=== PATIENT | male | born 1935 | race Caucasian/White ===

== ENCOUNTER 2019-07-21 20:19 | Emergency (ER) | payer MEDICARE ==
--- NOTE | 2019-07-21 21:42 | EDM.PDOC ---
ED HPI GENERAL MEDICAL PROBLEM - General Chief Complaint: Neurological Problem Stated Complaint: Possible stroke Time Seen by Provider: 07/21/19 20:55 Source of Information: Reports: Patient, EMS, EMS Notes Reviewed, Other ( neighbor /friend) History Limitations: Reports: Altered Mental Status - History of Present Illness INITIAL COMMENTS - FREE TEXT/NARRATIVE: Patient is an 84 yo white male with history of stage III CKD, HTN, Diabetes Mellites, Elevated Hemoglobin evaluated in [place] with unknown results in September of this year, with low oxygen in blood according to patients . This am patient called the hospital and spoke with a family member who noted garbled speech but attributed to poor dental receptionist. Netta patient was contacted by his who is visiting family in [facility] and due to his inability to communicate she contacted a neighbor to check on him who found him at home but although able to walk he was unable to express his thoughts and had difficulty forming intended words Brought to ED by ambulance for evaluation of possible stroke Allergies NKDA Onset: Today Onset Date: 07/21/19 Duration: Hour(s): (12 hours) - Related Data Allergies Allergy/AdvReac Type Severity Reaction Status Date / Time No Known Allergies Allergy Verified 07/21/19 21:44 Home Meds: Home Meds Furosemide 10 mg PO DAILY 07/21/19 [History] Losartan [Cozaar] 50 mg PO DAILY 07/21/19 [History] Metoprolol Tartrate 25 mg PO DAILY 07/21/19 [History] Repaglinide [Prandin] 2 mg PO DAILY 07/21/19 [History] Simvastatin 40 mg PO BEDTIME 07/21/19 [History] amLODIPine [Norvasc] 10 mg PO DAILY 07/21/19 [History] glipiZIDE [Glipizide ER] 10 mg PO DAILY 07/21/19 [History] Past Medical History Cardiovascular History: Reports: Hypertension Respiratory History: Reports: Other (See Below) (History of evaluation for "low oxygen in blood/elevated HCT. H/H 19. in August) Endocrine/Metabolic History: Reports: Diabetes, Type II Hematologic History: Reports: Polycythemia (Evaluation in [place] in Aug/September of this year. states he went to be checked for low oxygen. Appears to have been lost to follow up) Social & Family History - Tobacco Use Smoking Status *Q: Former Smoker Tobacco Use Within Last Twelve Months: No - Alcohol Use Days Per Week of Alcohol Use: 0 - Living Situation & Occupation Living situation: Reports: Occupation: Retired ED ROS GENERAL - Review of Systems Constitutional: Reports: No Symptoms Respiratory: Reports: Other (Occassional loose cough . Patient denies SOB. History of "low oxygen" and high hct with evaluation in [place] in Sep 2018) Cardiovascular: Reports: No Symptoms. Denies: Chest Pain GI/Abdominal: Denies: Abdominal Pain, Nausea, Vomiting : Reports: No Symptoms Musculoskeletal: Reports: Other Neurological: Denies: Headache, Numbness, Pre-Existing Deficit ED EXAM, NEURO - Physical Exam Exam: See Below Exam Limited By: Other (Aphasia) General Appearance: Alert, No Apparent Distress, Other (No apparrent SOB depite O2 Sat of 77 on room air) Eye Exam: Right Eye: EOMI, PERRL, Left Eye: Normal Inspection Ears: Normal External Exam, Hearing Grossly Normal Nose: Normal Inspection, No Blood Throat/Mouth: Normal Inspection, Normal Lips, No Airway Compromise Head Exam: Atraumatic, Normocephalic. No: Facial Swelling, Facial Tenderness Neck: Normal Inspection, Supple, Non-Tender Respiratory/Chest: No Respiratory Distress, Lungs Clear, Normal Breath Sounds, No Accessory Muscle Use, Chest Non-Tender Cardiovascular: Regular Rate, Rhythm, No Edema, No JVD GI/Abdominal: Soft, Non-Tender, No Distention, No Mass, Pelvis Stable Neurological: Alert, CN II-XII Intact, Straight Leg Raise (L), Straight Leg Raise (R), Other (NO leg or arm drife. Patietn with expressive aphasia. Difficutly with F to N testing and JESUS due to apparent lack of coordination or inabilty to follow directions although able to follow multiple other instructions) Back Exam: Normal Inspection. No: CVA Tenderness (R) Extremities: Normal Inspection, Normal Range of Motion, Non-Tender Psychiatric: Normal Affect, Normal Mood Skin Exam: Warm, Dry, Intact, Normal Color, No Rash EKG INTERPRETATION Rhythm: Other (Sinus rhythm with PAC's) Rate (Beats/Min): 99 P-Wave: Present QRS: Normal QT: Prolonged Comparison: NA - No Prior EKG Course - Vital Signs Last Recorded V/S: Last Vital Signs Temp 98.4 F 07/21/19 21:00 Pulse 89 07/21/19 22:15 Resp 16 07/21/19 22:15 BP 125/62 07/21/19 22:15 Pulse Ox 92 L 07/21/19 22:15 - Orders/Labs/Meds Orders: Active Orders 24 hr Category Date Time Status EKG Documentation Completion [RC] ASDIRECTED Care 07/22/19 00:52 Active Ready for Discharge [RC] PER UNIT ROUTINE Care 07/22/19 00:39 Active Chest 1V Frontal [CR] Stat Exams 07/21/19 21:34 Taken Head wo Cont [CT] Stat Exams 07/21/19 20:57 Taken EKG 12 Lead [EK] Routine Ther 07/22/19 00:52 Ordered Labs: Laboratory Tests 07/21/19 07/21/19 07/21/19 Range/Units 21:00 21:00 21:00 WBC 9.6 (4.0-11.0) K/uL RBC 7.11 H (4.50-6.50) M/uL Hgb 20.5 H* (13.0-18.0) g/dL Hct 60.1 H* (40.0-54.0) % MCV 85 (76-96) fL MCH 28.8 (27.0-32.0) pg MCHC 34.1 (31.0-35.0) g/dL RDW 14.5 (11.0-16.0) % Plt Count 157 (150-400) K/uL MPV 11.5 H (6.0-10.0) fL Neut % (Auto) 80.4 H (45.0-70.0) % Lymph % (Auto) 14.7 L (20.0-40.0) % Amite % (Auto) 4.3 (3.0-10.0) % Eos % (Auto) 0.3 L (1.0-5.0) % Baso % (Auto) 0.3 (0.0-0.5) % Neut # (Auto) 7.74 H (2.00-7.50) K/uL Lymph # (Auto) 1.42 L (1.50-4.00) K/uL Amite # (Auto) 0.41 (0.20-0.80) K/uL Eos # (Auto) 0.03 L (0.04-0.40) K/uL Baso # (Auto) 0.03 (0.02-0.10) K/uL PT (9.0-11.5) sec INR (1.0-3.5) APTT (24.4-33.2) SECONDS Sodium 136 (136-145) mmol/L Potassium 5.0 (3.5-5.1) mmol/L Chloride 100 (98-107) mmol/L Carbon Dioxide 20.8 L D (21.0-32.0) mmol/L Anion Gap 20.2 H (5.0-15.0) mmol/L BUN 24 (8-26) mg/dL Creatinine 1.65 H (0.70-1.30) mg/dL Est Cr Clr Drug Dosing TNP Estimated GFR (MDRD) 40 L (>60) MLS/MIN BUN/Creatinine Ratio 14.5 (6-25) Glucose 367 H D (74-100) mg/dL Lactic Acid 3.05 H (0.90-1.70) mmol/L Calcium 9.5 (8.5-10.1) mg/dL Total Bilirubin 0.9 (0.0-1.0) mg/dL AST 22 (15-37) U/L ALT 60 (12-78) U/L Alkaline Phosphatase 92 (46-116) U/L Troponin I 0.034 (0.000-0.060) ng/mL Total Protein 8.1 (6.4-8.2) g/dL Albumin 3.6 (3.4-5.0) g/dL Globulin 4.5 H (2.2-4.2) g/dL Albumin/Globulin Ratio 0.8 (0.8-2.0) Pre Ther Phlebot Hct % Therapeutic Phlebotomy Therapeut Phleb Volume mL Post Ther Phlebot Hct 07/21/19 07/21/19 Range/Units 21:00 22:00 WBC (4.0-11.0) K/uL RBC (4.50-6.50) M/uL Hgb (13.0-18.0) g/dL Hct (40.0-54.0) % MCV (76-96) fL MCH (27.0-32.0) pg MCHC (31.0-35.0) g/dL RDW (11.0-16.0) % Plt Count (150-400) K/uL MPV (6.0-10.0) fL Neut % (Auto) (45.0-70.0) % Lymph % (Auto) (20.0-40.0) % Amite % (Auto) (3.0-10.0) % Eos % (Auto) (1.0-5.0) % Baso % (Auto) (0.0-0.5) % Neut # (Auto) (2.00-7.50) K/uL Lymph # (Auto) (1.50-4.00) K/uL Amite # (Auto) (0.20-0.80) K/uL Eos # (Auto) (0.04-0.40) K/uL Baso # (Auto) (0.02-0.10) K/uL PT 11.3 (9.0-11.5) sec INR 1.2 (1.0-3.5) APTT 23.8 L (24.4-33.2) SECONDS Sodium (136-145) mmol/L Potassium (3.5-5.1) mmol/L Chloride (98-107) mmol/L Carbon Dioxide (21.0-32.0) mmol/L Anion Gap (5.0-15.0) mmol/L BUN (8-26) mg/dL Creatinine (0.70-1.30) mg/dL Est Cr Clr Drug Dosing Estimated GFR (MDRD) (>60) MLS/MIN BUN/Creatinine Ratio (6-25) Glucose (74-100) mg/dL Lactic Acid (0.90-1.70) mmol/L Calcium (8.5-10.1) mg/dL Total Bilirubin (0.0-1.0) mg/dL AST (15-37) U/L ALT (12-78) U/L Alkaline Phosphatase (46-116) U/L Troponin I (0.000-0.060) ng/mL Total Protein (6.4-8.2) g/dL Albumin (3.4-5.0) g/dL Globulin (2.2-4.2) g/dL Albumin/Globulin Ratio (0.8-2.0) Pre Ther Phlebot Hct 20.5 % Therapeutic Phlebotomy Tschcar Therapeut Phleb Volume 400 mL Post Ther Phlebot Hct Not Reportable Meds: Medications Discontinued Medications Generic Name Dose Route Start Last Admin Trade Name Carlos PRN Reason Stop Dose Admin Sodium Chloride 1,000 mls @ 999 mls/hr 07/21/19 21:43 07/21/19 21:54 Normal Saline IV 07/21/19 22:43 999 mls/hr .BOLUS ONE Administration - Radiology Interpretation Free Text/Narrative:: CT head negative for acute intracrainial process CT Results Date: 07/21/19 CT Results Time: 22:30 - Re-Assessments/Exams Free Text/Narrative Re-Assessment/Exam: 07/21/19 23:30 Prior to transfer patient exam was unchanged. Patient appearred to be more clear with mentation after fluids and phlebotomy. 07/21/19 23:32 Patient was placed on O2 requiring 3 liters NC to maintain O2 sat in lower 90's As per discussion with Dr. Agee neurologist at [place] patient had 1 unit of blood removed 1 liter of fluids given initially followed by 250 ml/hour for second liter during trnsfer CT scan see report. No acute intracrainial process by radiologist ruling CXR -no acute process cystic process right humeral head Labs with elevated Anion gap 20 , Trop .034, lactic acid 3 Abnormal labs-discussed with Dr. Srinivasan who agreed to accept patient in transfer 07/21/19 23:34 07/21/19 23:40 Departure - Departure Disposition: DC/Tfer to [facility] 02 - Discharge Information Referrals: PCP,None [Primary Care Provider] - Forms: ED Department Discharge Sepsis Event Note - Focused Exam Date Exam was Performed: 07/22/19 Time Exam was Performed: 12:51 ED Communication - ED Communication Date/Time Date: 07/21/19 - Discussed Case With (2) Discussed Case With (2): Admitting Provider, Other (and neurologist Dr. Agee and Dr. Srinivasan Hospitalist) - Problem List & Annotations (1) Aphasia SNOMED Code(s): 72305397 Code(s): R47.01 - APHASIA Status: Acute Priority: High (2) Hypoxemia SNOMED Code(s): 384392445 Code(s): R09.02 - HYPOXEMIA Status: Acute Priority: High (3) Polycythemia SNOMED Code(s): 673508064 Status: Acute - Problem List Review Problem List Initiated/Reviewed/Updated: Yes - My Orders Last 24 Hours: My Active Orders 07/21/19 20:57 Head wo Cont [CT] Stat 07/21/19 21:34 Chest 1V Frontal [CR] Stat 07/22/19 00:39 Ready for Discharge [RC] PER UNIT ROUTINE 07/22/19 00:52 EKG Documentation Completion [RC] ASDIRECTED EKG 12 Lead [EK] Routine - Assessment/Plan Last 24 Hours: My Active Orders 07/21/19 20:57 Head wo Cont [CT] Stat 07/21/19 21:34 Chest 1V Frontal [CR] Stat 07/22/19 00:39 Ready for Discharge [RC] PER UNIT ROUTINE 07/22/19 00:52 EKG Documentation Completion [RC] ASDIRECTED EKG 12 Lead [EK] Routine Assessment:: Diagnosis Aphasia Ischemic CVA vs adverse effect of polycythemia vs other Hypoxemia Chronic vs acute Etiology to be determined Records will need to be obtained from [place] hematology consult Polycythemia with increased viscosity of blood 1 unit of blood removed prior to [id number] Chronic Kidney Disease HTN Diabetes Mellites Plan Will transfer via ambulance to [place] for further evaluation and treatment Patient treated with phlebotomy of 1 unit and total of 2 liters of NC in ED and during transfer O2 at 3-4 liters via NC to maintain O2 sats greater than 92 Patient does't appear ill or SOB probably due to chronic nature of hypoxemia/ polycythemia Plan: Patieent to be transported by ambulance to [place] as per discussion with Dr. Agee and Dr. Srinivasan Will have had total of 2 liters of fluid and phleboltomy of 1 unit of blood by the time he reaches [place]
[2019-07-21] MEDS ORDERED: Sodium Chloride 0.9% 1,000 ML IV ONE (21:43)
--- NOTE | 2019-07-22 15:02 | CT ---
CLINICAL DATA: Stroke-like symptoms. UNENHANCED BRAIN CT, 21 JULY 2019: Multislice acquisition through the brain without IV contrast was performed. Comparison is made to a prior exam dated April 25, 2012. There is diffuse cerebral atrophy. There are periventricular lucencies bilaterally, consistent with small vessel ischemic change. No masses or mass effect. No intracranial hemorrhage. No evidence of acute or subacute infarct. There is partial opacification of the mastoid air cells on the left, consistent with mastoid disease. No osseous abnormalities. IMPRESSION: No acute intracranial abnormalities. Job: [id number] [facility]
--- NOTE | 2019-07-22 15:04 | CR ---
CLINICAL DATA: Stroke-like symptoms. AP PORTABLE CHEST, 21 JULY 2019: No priors. The patient has taken a poor inspiration. The heart size is within normal limits. The pulmonary vasculature appears mildly prominent. It may be accentuated by the poor inspiration. Mild pulmonary venous congestion should be considered. There is subtle increased density in the right mid lung just above the minor fissure most likely representing subsegmental atelectasis or infiltrate. The lungs are otherwise clear. No pneumothorax. No pleural effusions. There are multiple subchondral cysts in the right humeral head. No other significant findings. Job: [id number] [facility]TDD
== END 2019-07-21 22:45 ==
LOC: LB.ED 20:19
DX: R47.01 Aphasia (principal); D75.1 Secondary polycythemia; I12.9 Hypertensive chronic kidney disease with stage 1 through stage 4 chronic kidney disease, or unspecified chronic kidney disease; N18.3 Chronic kidney disease, stage 3 (moderate); E11.22 Type 2 diabetes mellitus with diabetic chronic kidney disease; Z87.891 Personal history of nicotine dependence
CPT/HCPCS: 36415; 70450; 71045; 80053; 83605; 84484; 85025; 85610; 85730; 93005; 96360; 99195; 99285; 99285-25; A0425; A0429; J7030

== ENCOUNTER 2020-02-11 14:34 | Emergency (ER) | payer MEDICARE ==
[2020-02-11] MEDS: Furosemide 40 MG/4 ML VIAL IVPUSH ONE (14:44)
--- NOTE | 2020-02-11 15:38 | EDM.PDOC ---
ED HPI GENERAL MEDICAL PROBLEM - General Chief Complaint: General Stated Complaint: SOB Time Seen by Provider: 02/11/20 14:35 Source of Information: Reports: Patient, Family, RN History Limitations: Reports: No Limitations - History of Present Illness INITIAL COMMENTS - FREE TEXT/NARRATIVE: pt presents to the ER with shortness of breath, he states medical history of stroke around 2018 and placement of stents in his heart in [place] about that time. history also provided by . episode started 2-3 days ago and pt has been using his O2 concentrator at home more often and sleeping in the chair at night where he normally sleeps in bed. yesterday he worsened throughout the night and day today. pt denies cough, fever, chills, nausea, vomiting, chest pain, dizzy or lightheadedness. no known exposure to covid 19. symptoms worsen with activity and improve slightly with rest. Onset Date: 02/10/20 - Related Data Allergies Allergy/AdvReac Type Severity Reaction Status Date / Time No Known Allergies Allergy Verified 07/21/19 21:44 Home Meds: Home Meds Losartan [Cozaar] 50 mg PO DAILY 07/21/19 [History] Metoprolol Tartrate 25 mg PO DAILY 07/21/19 [History] Aspirin 81 mg PO DAILY 02/11/20 [History] Insulin Glarg,Human.Rec.Analog [Lantus Solostar] 15 unit SUBCUT DAILY 02/11/20 [History] Insulin Lispro [Humalog] 7 unit SQ TID 02/11/20 [History] Latanoprost [Xalatan] 2.5 ml OP DAILY 02/11/20 [History] Ticagrelor [Brilinta] 90 mg PO BID 02/11/20 [History] atorvaSTATin [Lipitor] 40 mg PO DAILY 02/11/20 [History] Past Medical History HEENT History: Reports: Hard of Hearing, Impaired Vision Cardiovascular History: Reports: Hypertension, Stents Respiratory History: Reports: Other (See Below) (History of evaluation for "low oxygen in blood/elevated HCT. 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 states he went to be checked for low oxygen. Appears to have been lost to follow up) - Past Surgical History Cardiovascular Surgical History: Reports: Carotid Stents Social & Family History - Living Situation & Occupation Living situation: Reports: Occupation: Retired ED ROS GENERAL - Review of Systems Review Of Systems: Comprehensive ROS is negative, except as noted in HPI. ED EXAM, GENERAL - Physical Exam Exam: See Below Exam Limited By: No Limitations General Appearance: Alert, WD/WN, No Apparent Distress, Moderate Distress Eye Exam: Bilateral Eye: EOMI, PERRL Ears: Hearing Loss ([place] bilateral) Throat/Mouth: Normal Lips, Normal Oropharynx, No Airway Compromise Neck: Full Range of Motion Respiratory/Chest: Respiratory Distress, Decreased Breath Sounds, Crackles, Ac cessory Muscle Use, Retractions Cardiovascular: Regular Rate, Rhythm, Tachycardia, Other (pitting edema bilateral +2 lower extremities) Peripheral Pulses: 2+: Radial (L), Radial (R), Posterior Tibial (L), Posterior Tibial (R) GI/Abdominal: Soft, Non-Tender Back Exam: Normal Inspection, Full Range of Motion Extremities: Normal Range of Motion, Non-Tender, Pedal Edema Neurological: Alert, CN II-XII Intact, Normal Gait Psychiatric: Normal Affect, Normal Mood Skin Exam: Cyanosis, Diaphoretic, Pallor (ashen) EKG INTERPRETATION EKG Date: 02/11/20 Rhythm: NSR (sinus tachy) ST-T: Normal Comparison: No Change Course - Vital Signs Last Recorded V/S: Last Vital Signs Temp 96.6 F L 02/11/20 14:36 Pulse 103 H 02/11/20 16:33 Resp 31 H 02/11/20 16:33 BP 140/71 02/11/20 16:33 Pulse Ox 95 02/11/20 16:33 - Orders/Labs/Meds Orders: Active Orders 24 hr Category Date Time Status CPAP Adult [RT BiPAP/CPAP] [RC] ASDIRECTED Care 02/11/20 16:13 Ordered EKG Documentation Completion [RC] ASDIRECTED Care 02/11/20 14:37 Active Chest 1V Frontal [CR] Stat Exams 02/11/20 14:35 Taken Azithromycin [Zithromax] 500 mg Med 02/11/20 15:54 Active Sodium Chloride 0.9% [Normal Saline] 250 ml IV ONETIME cefTRIAXone [Rocephin] Med 02/11/20 15:45 Active 1 gm IVPUSH Q24H Medication Orders Ceftriaxone Sodium (Rocephin) 1 gm IVPUSH Q24H TERRIE Last Admin: 02/11/20 15:47 Dose: 1 gm Documented by: JULIETTE Azithromycin 500 mg/ Sodium (Chloride) 250 mls @ 250 mls/hr IV ONETIME ONE Stop: 02/11/20 16:53 Last Admin: 02/11/20 16:06 Dose: 250 mls/hr Documented by: JULIETTE Labs: Laboratory Tests 02/11/20 02/11/20 Range/Units 14:50 14:50 WBC 17.4 H D (4.0-11.0) K/uL RBC 5.89 (4.50-6.50) M/uL Hgb 17.6 (13.0-18.0) g/dL Hct 52.6 (40.0-54.0) % MCV 89 (76-96) fL MCH 29.9 (27.0-32.0) pg MCHC 33.5 (31.0-35.0) g/dL RDW 15.0 (11.0-16.0) % Plt Count 219 D (150-400) K/uL MPV 11.5 H (6.0-10.0) fL Neut % (Auto) 78.2 H (45.0-70.0) % Lymph % (Auto) 10.9 L (20.0-40.0) % [place] % (Auto) 10.7 H (3.0-10.0) % Eos % (Auto) 0.1 L (1.0-5.0) % Baso % (Auto) 0.1 (0.0-0.5) % Neut # (Auto) 13.60 H (2.00-7.50) K/uL Lymph # (Auto) 1.89 (1.50-4.00) K/uL [place] # (Auto) 1.86 H (0.20-0.80) K/uL Eos # (Auto) 0.02 L (0.04-0.40) K/uL Baso # (Auto) 0.02 (0.02-0.10) K/uL Sodium 134 L (136-145) mmol/L Potassium 4.3 (3.5-5.1) mmol/L Chloride 98 (98-107) mmol/L Carbon Dioxide 24.8 (21.0-32.0) mmol/L Anion Gap 15.5 H (5.0-15.0) mmol/L BUN 46 H D (8-26) mg/dL Creatinine 0.59 L D (0.70-1.30) mg/dL Est Cr Clr Drug Dosing TNP Estimated GFR (MDRD) > 60 (>60) MLS/MIN BUN/Creatinine Ratio 78.0 H (6-25) Glucose 190 H D (74-100) mg/dL Calcium 9.9 (8.5-10.1) mg/dL Total Bilirubin 1.3 H D (0.0-1.0) mg/dL AST 37 (15-37) U/L ALT 62 (12-78) U/L Alkaline Phosphatase 113 (46-116) U/L Troponin I 0.132 H* D (0.000-0.060) ng/mL B-Natriuretic Peptide 4747 H (0-450) pg/mL Total Protein 8.9 H (6.4-8.2) g/dL Albumin 2.7 L (3.4-5.0) g/dL Globulin 6.2 H (2.2-4.2) g/dL Albumin/Globulin Ratio 0.4 L (0.8-2.0) Meds: Medications Generic Name Dose Route Start Last Admin Trade Name Freq PRN Reason Stop Dose Admin Ceftriaxone Sodium 1 gm 02/11/20 15:45 02/11/20 15:47 Rocephin IVPUSH 1 gm Q24H TERRIE Administration Azithromycin 500 mg/ Sodium 250 mls @ 250 mls/hr 02/11/20 15:54 02/11/20 16:06 Chloride IV 02/11/20 16:53 250 mls/hr ONETIME ONE Administration Discontinued Medications Generic Name Dose Route Start Last Admin Trade Name Freq PRN Reason Stop Dose Admin Ceftriaxone Sodium Confirm 02/11/20 15:51 02/11/20 15:46 Rocephin Administered 02/11/20 15:52 Not Given Dose 1 gm .ROUTE .STK-MED ONE Furosemide 40 mg 02/11/20 14:38 02/11/20 14:44 Lasix IVPUSH 02/11/20 14:39 40 mg NOW ONE Administration Methylprednisolone Sodium Succinate 60 mg 02/11/20 15:55 02/11/20 16:12 Solu-Medrol IVPUSH 02/11/20 15:56 60 mg ONETIME ONE Administration Methylprednisolone Sodium Succinate Confirm 02/11/20 16:16 02/11/20 16:13 Solu-Medrol Administered 02/11/20 16:17 Not Given Dose 125 mg .ROUTE .STK-MED ONE Nitroglycerin 1 gm 02/11/20 16:22 02/11/20 16:26 Nitro-Bid 2% TOP 02/11/20 16:23 1 inch ONETIME ONE Administration - Radiology Interpretation Free Text/Narrative:: cxr shows bilat pulm infiltrates worsened when compared to July 13 films suspected consolodation to RLL. cardiomegaly. no noted bony abnormalities. Departure - Departure Time of Disposition: 16:00 Disposition: DC/Tfer to [facility] 02 Clinical Impression: Acute exacerbation of CHF (congestive heart failure), RLL pneumonia, Elevated troponin I level, Respiratory failure with hypoxia and hypercapnia - Discharge Information *PRESCRIPTION DRUG MONITORING PROGRAM REVIEWED*: Not Applicable *COPY OF PRESCRIPTION DRUG MONITORING REPORT IN PATIENT SONI: Not Applicable Referrals: PCP,None [Primary Care Provider] - Forms: ED Department Discharge Critical Care Note - Critical Care Note Total Time (mins): 100 Comments: I spent 100minutes of critical care time with this patient including assessment, chart review, providing interventions and orders, reassessments and monitoring. Sepsis Event Note (ED) - Evaluation Sepsis Screening Result: No Definite Risk - Focused Exam Vital Signs: Vital Signs Temp Pulse Resp BP Pulse Ox 02/11/20 16:33 103 H 31 H 140/71 95 02/11/20 16:28 104 H 29 H 140/71 95 02/11/20 16:10 104 H 32 H 134/55 L 93 L 02/11/20 15:52 106 H 31 H 127/56 L 91 L 02/11/20 15:42 108 H 31 H 128/65 91 L 02/11/20 15:32 107 H 33 H 148/67 H 88 L 02/11/20 15:21 107 H 34 H 133/61 90 L 02/11/20 15:11 108 H 33 H 127/91 H 91 L 02/11/20 15:01 106 H 30 H 133/43 L 92 L 02/11/20 14:58 104 H 32 H 154/50 H 92 L 02/11/20 14:36 96.6 F L 101 H 30 H 147/81 H 94 L 02/11/20 14:35 104 H 30 H 147/84 H 92 L 02/11/20 14:34 98.2 F 116 H 24 H 110/72 80 L ED Communication - Discussed Case With (1) Discussed Case With (1): Admitting Provider Person/s Notified (1): Dr. León of [facility] Person/s Notified (2): Dr. Breaux of [facility] Date: 02/11/20 Time Called: 16:00 - Conversation Summary Admitting Provider Agreed to Patient's Admission: Yes - Problem List & Annotations (1) Hypoxemia SNOMED Code(s): 246233666 Code(s): R09.02 - HYPOXEMIA Status: Acute Priority: High Current Visit: No (2) Acute exacerbation of CHF (congestive heart failure) SNOMED Code(s): 104273304, 05348925382494 Code(s): I50.9 - HEART FAILURE, UNSPECIFIED Status: Acute Current Visit: Yes (3) RLL pneumonia SNOMED Code(s): 660000334 Code(s): J18.9 - PNEUMONIA, UNSPECIFIED ORGANISM Status: Acute Current Visit: Yes (4) Elevated troponin I level SNOMED Code(s): 089825182 Code(s): R79.89 - OTHER SPECIFIED ABNORMAL FINDINGS OF BLOOD CHEMISTRY Status: Acute Current Visit: Yes (5) Respiratory failure with hypoxia and hypercapnia SNOMED Code(s): 68609764 Code(s): J96.91 - RESPIRATORY FAILURE, UNSPECIFIED WITH HYPOXIA; J96.92 - RESPIRATORY FAILURE, UNSPECIFIED WITH HYPERCAPNIA Status: Acute Current Visit: Yes - Problem List Review Problem List Initiated/Reviewed/Updated: Yes - My Orders Last 24 Hours: My Active Orders 02/11/20 14:35 Chest 1V Frontal [CR] Stat 02/11/20 14:37 EKG Documentation Completion [RC] ASDIRECTED 02/11/20 15:45 cefTRIAXone [Rocephin] 1 gm IVPUSH Q24H 02/11/20 15:54 Azithromycin [Zithromax] 500 mg Sodium Chloride 0.9% [Normal Saline] 250 ml IV ONETIME 02/11/20 16:13 CPAP Adult [RT BiPAP/CPAP] [RC] ASDIRECTED - Assessment/Plan Last 24 Hours: My Active Orders 02/11/20 14:35 Chest 1V Frontal [CR] Stat 02/11/20 14:37 EKG Documentation Completion [RC] ASDIRECTED 02/11/20 15:45 cefTRIAXone [Rocephin] 1 gm IVPUSH Q24H 02/11/20 15:54 Azithromycin [Zithromax] 500 mg Sodium Chloride 0.9% [Normal Saline] 250 ml IV ONETIME 02/11/20 16:13 CPAP Adult [RT BiPAP/CPAP] [RC] ASDIRECTED Assessment:: assessment: exacerbation of CHF, acute respiratory failure with hypoxia and hypercapnia, hypoxemia, elevated troponin, RLL pna plan: 500 azithro, 1g rocephin, 60mg solumedrol, cpap of 10, 1" nitro paste, 40mg lasix. transport via fixed wing to [facility], accepting physician Dr. León of [facility]. this pt was evaluated in the context of the covid 19 pandemic. on initial presentation, pt color was dusky singletary from neck up and diaphoretic with significant work of breathing present. after application of supplemental O2 by mask, pt appeared to slightly improve by work of breathing and color. this was further improved by cpap at [id number] and 60% O2. sats improved from 50-60% to 95% BP stable 120s/60-70s HR from 120s to 100. ECG sinus tachycardia with frequent PVCs, no noted T wave or ischemic changes compared to [id number]. CXR shows bilateral infiltrates compared to June with concern for consolodation in RLL that was treated with rocephin and azithromycin. nitro paste was used for any vasodilating action it would provide and lasix. transport via fixed wing by [facility].
[2020-02-11] MEDS: cefTRIAXone 1 GM Vial ONE (15:46)
[2020-02-11] MEDS: cefTRIAXone 1 GM Vial IVPUSH SCH (15:47)
[2020-02-11] MEDS: Azithromycin 500 MG in Sodium Chloride 0.9% 250 ML IV ONE (16:06)
[2020-02-11] MEDS: methylPREDNISolone Sodium Succinate 125 MG/2 ML SDV IVPUSH ONE (16:12)
[2020-02-11] MEDS: methylPREDNISolone Sodium Succinate 125 MG/2 ML SDV ONE (16:13)
[2020-02-11] MEDS: Nitroglycerin 2% Oint 30 GM Tube TOP ONE (16:26)
--- NOTE | 2020-02-12 08:37 | CR ---
DATE OF SERVICE: 02/11/20 CLINICAL DATA: SOB AP CHEST: Comparison is made to a prior exam dated 07/21/19. The heart remains enlarged, unchanged. The pulmonary vasculature remains prominent, unchanged. There is increased density in the right lung base consistent with basilar atelectasis or infiltrate. Pneumonia should be considered. There is blunting of the right costophrenic angle consistent with right pleural effusion. The exam is otherwise unchanged from the prior. [id number] [facility]
== END 2020-02-11 17:45 ==
LOC: LB.ED 14:34
DX: I11.0 Hypertensive heart disease with heart failure (principal); I50.9 Heart failure, unspecified; J18.9 Pneumonia, unspecified organism; J96.91 Respiratory failure, unspecified with hypoxia; J96.92 Respiratory failure, unspecified with hypercapnia; R79.89 Other specified abnormal findings of blood chemistry; E11.9 Type 2 diabetes mellitus without complications; Z79.4 Long term (current) use of insulin; Z79.82 Long term (current) use of aspirin; Z79.899 Other long term (current) drug therapy; Z95.5 Presence of coronary angioplasty implant and graft
CPT/HCPCS: 36415; 71045; 80053; 83880; 84484; 85025; 93005; 96365; 96375; 99291; 99292; A9270; J0456; J0696; J1940; J2930; J7050

== ENCOUNTER 2020-03-27 12:53 | Emergency (ER) | payer MEDICARE ==
--- NOTE | 2020-03-27 13:02 | EDM.PDOC ---
ED HPI GENERAL MEDICAL PROBLEM - General Stated Complaint: SORES ON HIS BOTTOM Time Seen by Provider: 03/27/20 13:45 - History of Present Illness INITIAL COMMENTS - FREE TEXT/NARRATIVE: patient has redness in bilateral upper cut of buttocks. Patient was in the hospital for respitarory issues for 2 weeks, developed the redness in the last week of his hospital stay. He was treated with dressings that were removed prior to DC. Presents today with continues redness and pain only when sitting. His has been applying hydrocortisone to the areas daily without relief. Patient states he sleeps in the chair. Improves with: Reports: Movement Worsens with: Reports: Immobilization Associated Symptoms: Reports: No Other Symptoms - Related Data Allergies Allergy/AdvReac Type Severity Reaction Status Date / Time No Known Allergies Allergy Verified 07/21/19 21:44 Home Meds: Home Meds Losartan [Cozaar] 50 mg PO DAILY 07/21/19 [History] Metoprolol Tartrate 25 mg PO DAILY 07/21/19 [History] Aspirin 81 mg PO DAILY 02/11/20 [History] Insulin Glarg,Human.Rec.Analog [Lantus Solostar] 15 unit SUBCUT DAILY 02/11/20 [History] Insulin Lispro [Humalog] 7 unit SQ TID 02/11/20 [History] Latanoprost [Xalatan] 2.5 ml OP DAILY 02/11/20 [History] Ticagrelor [Brilinta] 90 mg PO BID 02/11/20 [History] atorvaSTATin [Lipitor] 40 mg PO DAILY 02/11/20 [History] Past Medical History HEENT History: Reports: Hard of Hearing, Impaired Vision Cardiovascular History: Reports: Hypertension, Stents Other Cardiovascular History: stents placed June 2019 Respiratory History: Reports: Other (See Below) (History of evaluation for "low oxygen in blood/elevated HCT. 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 states he went to be checked for low oxygen. Appears to have been lost to follow up) - Past Surgical History Cardiovascular Surgical History: Reports: Carotid Stents Social & Family History - Family History Family Medical History: Noncontributory - Caffeine Use Caffeine Use: Reports: None - Living Situation & Occupation Living situation: Reports: Occupation: Retired ED ROS GENERAL - Review of Systems Review Of Systems: See Below Constitutional: Reports: No Symptoms HEENT: Reports: No Symptoms Respiratory: Reports: No Symptoms Cardiovascular: Reports: No Symptoms Endocrine: Reports: No Symptoms GI/Abdominal: Reports: No Symptoms : Reports: No Symptoms Musculoskeletal: Reports: No Symptoms Skin: Reports: Erythema, Wound Neurological: Reports: No Symptoms Psychiatric: Reports: No Symptoms Hematologic/Lymphatic: Reports: No Symptoms ED EXAM, SKIN/RASH Exam: See Below Exam Limited By: No Limitations General Appearance: Alert, No Apparent Distress Respiratory/Chest: No Respiratory Distress, Lungs Clear (patient is on a continous 3L O2 NC), Normal Breath Sounds Cardiovascular: No Edema, No Murmur GI/Abdominal: Normal Bowel Sounds Back Exam: Normal Inspection Extremities: Normal Inspection Neurological: Alert, Oriented, No Motor/Sensory Deficits Skin: Warm, Dry, Erythema, Wound/Incision Location, Skin: Other (buttocks, bilateral upper cut) Characteristics: Erythematous Comments: area on left side has a small 1 x 0.5 cm superficial wound with scant clear drainage, no signs of infection, fever, foul smelling drainage. Right side has some minimal peeling with no open areas, no signs of infection. right and left areas redness 5cm x 8 cm.Allevyn 5 x 5 dressing applied bilaterally after prepping surrounding skin with barrier swab. Departure - Departure Time of Disposition: 14:22 Disposition: Home, Self-Care 01 Clinical Impression: Pressure ulcer of left buttock, stage 1, Pressure ulcer of right buttock, stage 1 - Discharge Information *PRESCRIPTION DRUG MONITORING PROGRAM REVIEWED*: Not Applicable *COPY OF PRESCRIPTION DRUG MONITORING REPORT IN PATIENT SONI: Not Applicable Forms: ED Department Discharge Additional Instructions: watch for signs of inceftion including increased drainage, redness, foul smell, fevers. Leave the dressings in place until your home health nurse visits. If the dressings fall off you may replace them with the ones given. We discussed frequent position changes and the use of a donut for sleeping in the chair to relieve pressure. Follow up with Dr. Beasley next week as needed. Return to ED for any increased or new concerning symptoms. - Problem List Review Problem List Initiated/Reviewed/Updated: Yes - Assessment/Plan Plan: Instructed patient and on watching for signs of infection, they verbalized understanding. Dressings will remain in place until his home health nurse visits next week. They were given additional dressings to change only if the dressings falls off. All questions were answered prior to DC. Patient will return to ED for any increased or new concerning symptoms.
== END 2020-03-27 14:39 | disposition home or self-care (01) ==
LOC: LB.ED 12:53
DX: L89.321 Pressure ulcer of left buttock, stage 1 (principal); L89.311 Pressure ulcer of right buttock, stage 1; I10 Essential (primary) hypertension; E11.9 Type 2 diabetes mellitus without complications; Z79.4 Long term (current) use of insulin; Z79.899 Other long term (current) drug therapy; Z79.82 Long term (current) use of aspirin
CPT/HCPCS: 99283